=== PATIENT | male | born 1965 | race Caucasian/White ===

== ENCOUNTER 2017-09-01 08:40 | Outpatient (CLI) | payer OTHER | END 2017-09-01 08:41 | disposition home or self-care (01) | LOC: EDBD → BICMRI 08:40 | PROVIDERS: ATTEND Orthopaedic Surgery | DX: M25.511 Pain in right shoulder (principal); S43.401A Unspecified sprain of right shoulder joint, initial encounter ==

== ENCOUNTER 2017-12-30 10:54 | Outpatient (CLI) | payer OTHER ==
[2017-12-30 12:07] LABS: Mean Corpuscular HGB CONC 33.7 g/dL (32.0-36.0); Mean Corpuscular Hemoglobin 32.6 pg (27.0-31.0); Mean Corpuscular Volume 96.8 fL (78.0-98.0); Mean Platelet Volume 7.4 fL (7.4-10.4); Platelet Count 247 thou/uL (130-400); RBC Distribution Width 11.2 % (11.5-14.5); Red Blood Cell (RBC) Count 4.61 mill/uL (4.70-6.10)
[2017-12-30 12:33] LABS: Anion Gap 12 mmol/L (10-20); BUN (Urea Nitrogen) 11 mg/dL (8.4-25.7); Calc. Creatinine Clearance 0 mL/min (70-130); Calcium 9.6 mg/dL (7.8-10.44); Carbon Dioxide 27 mmol/L (23-31); Chloride 105 mmol/L (98-107); Estimated GFR-MDRD Greater than 90; Glucose 116 mg/dL (80-115); Sodium 140 mmol/L (136-145)
== END 2017-12-30 10:55 | disposition home or self-care (01) ==
LOC: EDBD → LABBT 10:54
PROVIDERS: ATTEND Orthopaedic Surgery
DX: Z01.818 Encounter for other preprocedural examination (principal); M75.41 Impingement syndrome of right shoulder; G56.01 Carpal tunnel syndrome, right upper limb; S43.431A Superior glenoid labrum lesion of right shoulder, initial encounter
CPT/HCPCS: 80048; 85027; 93005; 93010

== ENCOUNTER 2017-12-31 07:51 | Day surgery (SDC) | payer OTHER ==
[2017-12-30 11:10] VITALS: BMI 25.0
[2017-12-31] MEDS ORDERED: CEFAZOLIN/Water 2 GM/20 ML SYRINGE ONE (08:19)
[2017-12-31] MEDS ORDERED: Fentanyl 100 MCG/2 ML VIAL ONE ×2 (08:25→13:20)
[2017-12-31] MEDS ORDERED: Midazolam HCl 2 mg/2 ml Vial ONE ×2 (08:25→14:03)
[2017-12-31] MEDS ORDERED: HYDROcodone/Acetaminophen 7.5/325 mg Tablet PO PRN ×2 (09:23)
[2017-12-31] MEDS ORDERED: Fentanyl 100 MCG/2 ML VIAL IV PRN (09:24)
[2017-12-31] MEDS ORDERED: traMADol HCl 50 MG TAB PO PRN ×2 (09:24)
[2017-12-31] MEDS ORDERED: Ropivacaine HCl/PF 1,100 MG in Sodium Chloride 0.9% 440 ML NERVE BLCK SCH (09:24)
[2017-12-31] MEDS ORDERED: Zolpidem Tartrate 5 MG TAB PO PRN (09:24)
[2017-12-31] MEDS ORDERED: Promethazine HCl 25 MG/ML VIAL IM PRN (09:24)
[2017-12-31] MEDS ORDERED: Ondansetron HCl/PF 4 MG/2 ML Vial IVP PRN (09:24)
[2017-12-31] MEDS ORDERED: Bupivacaine/Epinephrine 0.25% 30 ML VIAL ONE (11:31)
[2017-12-31] MEDS ORDERED: Neomycin-Polymyxin 1 ML AMP ONE (12:31)
[2017-12-31] MEDS ORDERED: Bupivacaine HCl 0.5%/Epinephrine 1:200,000/PF 30 ml Vial ONE (13:31)
[2017-12-31] MEDS ORDERED: Esmolol 100 MG/10 ML VIAL ONE ×2 (14:03→15:14)
[2017-12-31] MEDS ORDERED: Ropivacaine 0.5% HCl/PF (150 MG/30 ML VIAL) ONE (14:51)
[2017-12-31] MEDS ORDERED: Ropivacaine 0.2% HCl/PF (40 MG/20 ML VIAL) ONE (14:51)
[2017-12-31] MEDS ORDERED: Lidocaine 1% PF 5 ML VIAL ONE (15:14)
[2017-12-31] MEDS ORDERED: Ondansetron HCl/PF 4 MG/2 ML Vial ONE (15:14)
[2017-12-31] MEDS ORDERED: Glycopyrrolate 0.2 MG/ML 5 ML SYRINGE ONE (15:14)
[2017-12-31] MEDS ORDERED: PROPOFOL 200 MG/20 ML VIAL ONE (15:14)
[2017-12-31] MEDS ORDERED: ePHEDrine/0.9% NaCl/PF SYRINGE 50 mg/10 ml ONE (15:14)
--- NOTE | 2017-12-31 16:18 | OP ---
DATE OF OPERATION: 12/31/2017 PREOPERATIVE DIAGNOSES: 1. Impingement, right shoulder and tear of the posterior superior labrum of the right shoulder. 2. Right carpal tunnel syndrome. POSTOPERATIVE DIAGNOSES: 1. Impingement, right shoulder and tear of the posterior superior labrum of the right shoulder. 2. Right carpal tunnel syndrome. PROCEDURE: 1. Arthroscopy of the right shoulder with subacromial decompression and repair of the posterior supe rior labrum. 2. Right carpal tunnel release. SURGEON: Lyle Stoll M.D. ANESTHESIA: General. TECHNIQUE: The patient had a supraclavicular block performed prior to surgery. He was given preoper ative IV antibiotics, taken to the operating room, placed in the supine position. Satisfactory gener al anesthesia was performed. The patient was then placed in the left lateral decubitus position. Al l bony prominences were well-padded and the right upper extremity was placed in 15 pounds of traction . The shoulder and upper extremity sterilely prepped and draped in usual fashion. After the shoulde r was initially scoped through anterior and posterior portals, there was significant synovitis in the shoulder joint. Partial synovectomy was performed. There was tearing from the posterior superior l abrum and this was repaired using Arthrex 2.9 anchors and #2 FiberWire. This provided excellent stab ility of the posterior superior labrum. There was some fraying in the superior portion of the labrum as well and this was smoothed down with a shaver. The anterior labrum and inferior labrum were inta ct. The undersurface of the rotator cuff was intact. There were some arthritic changes, particularl y in the glenoid with some articular cartilage damage. The subacromial space was then entered and wa s cleaned up initially with a ArthroWand and then a harley was used to smooth down and thinned down the undersurface of the acromion. The top of the rotator cuff had significant synovitis and a partial s ynovectomy was performed, but there were no full tears of the rotator cuff. After the subacromial de compression was performed, the wounds were closed using 3-0 Rapide and the patient was taken out of t raction, placed in the supine position. A temporary dressing was placed over the shoulder and the [facility] hand, forearm, and wrist were then sterilely prepped and draped. After exsanguination, the tourn iquet at the proximal right forearm was raised to 200 mmHg. A 12 mm incision was made curvilinear at the base of the hand over the carpal canal region. Blunt and sharp dissection was made down to the median nerve. Using the [employer] carpal tunnel release instruments, the interval between the median n erve and transverse carpal ligament was developed and then between the transverse carpal ligament and the palmar fascia was developed using the special [employer] tome scalpel. The transverse carpal ligam ent was divided completely freeing the median nerve, making sure that there was no compressive or res tricted tissue over the median nerve up into the distal aspect of the forearm or into the palm. The wound was then irrigated with antibiotic solution and closed using 3-0 Rapide. A 15 mL of 0.5% Caryl ine without epinephrine was used around the wound and the palm to give the patient postoperative anal gesia although the supraclavicular block probably already would do that. This was placed just to be sure that he did not have good analgesia for the carpal tunnel release. The wounds were then cleaned up and sterile dressings were applied. The patient was awakened, extubated, and transferred to the recovery room in stable condition. ESTIMATED BLOOD LOSS: 20 mL. COMPLICATIONS: None. DISCHARGE MEDICATIONS: [place] 10 one every 6 hours as needed for pain, #60. FOLLOWUP: Follow up in my office in 1 week.
== END 2017-12-31 16:25 | disposition home or self-care (01) ==
LOC: SDC 07:51 → EDBD 11:30 → SDC 16:25
PROVIDERS: ATTEND Orthopaedic Surgery
PROC: 0MM14ZZ Reattachment of Right Shoulder Bursa and Ligament, Percutaneous Endoscopic Approach (ICD-10-PCS; principal; 2017-12-31)
PROC: 01N50ZZ Release Median Nerve, Open Approach (ICD-10-PCS; principal; 2017-12-31)
PROC: 0RNJ4ZZ Release Right Shoulder Joint, Percutaneous Endoscopic Approach (ICD-10-PCS; principal; 2017-12-31)
DX: S43.431A Superior glenoid labrum lesion of right shoulder, initial encounter (principal); G56.01 Carpal tunnel syndrome, right upper limb; M75.41 Impingement syndrome of right shoulder; M19.011 Primary osteoarthritis, right shoulder; M65.811 Other synovitis and tenosynovitis, right shoulder
CPT/HCPCS: C1713; J0670; J2001; J2250; J2405; J2704; J2795; J3010; J7050

== ENCOUNTER 2019-11-02 07:59 | Outpatient (CLI) | payer MEDICARE ==
--- NOTE | 2019-11-02 08:52 | ULT ---
ULTRASOUND ABDOMEN LIMITED: (RIGHT UPPER QUADRANT) DATE: 11/02/2019 HISTORY: 64-year-old male with elevated liver enzymes. FINDINGS: Gallbladder:Not visualized. Patient not NPO. Common duct: 5 mm. Liver:Normal size and echogenicity. Pancreas:Nonspecific sonographic appearance Right kidney:No hydronephrosis IMPRESSION: 1. Gallbladder not visualized. This could be due to contraction due to postprandial state, or status post cholecystectomy. 2. Otherwise negative.
== END 2019-11-02 08:00 | disposition home or self-care (01) ==
LOC: BICULT 07:59
PROVIDERS: ATTEND Family Medicine
DX: R74.8 Abnormal levels of other serum enzymes (principal)
CPT/HCPCS: 76705

== ENCOUNTER 2021-09-09 11:29 | Outpatient (CLI) | payer MEDICARE | END 2021-09-09 11:30 | disposition home or self-care (01) | LOC: SCSMRI 11:29 | PROVIDERS: ATTEND Neurological Surgery | DX: M54.6 Pain in thoracic spine (principal); M54.2 Cervicalgia; M47.814 Spondylosis without myelopathy or radiculopathy, thoracic region; M50.323 Other cervical disc degeneration at C6-C7 level; M47.812 Spondylosis without myelopathy or radiculopathy, cervical region; M48.02 Spinal stenosis, cervical region; M48.03 Spinal stenosis, cervicothoracic region; M47.813 Spondylosis without myelopathy or radiculopathy, cervicothoracic region; M50.21 Other cervical disc displacement, high cervical region; M50.23 Other cervical disc displacement, cervicothoracic region | CPT/HCPCS: 72141; 72146 ==

== ENCOUNTER 2024-04-17 18:45 | Emergency (ER) | payer MEDICARE | END 2024-04-17 19:45 | disposition home or self-care (01) | LOC: ERS 18:45 | DX: T81.49XA Infection following a procedure, other surgical site, initial encounter (principal); L02.91 Cutaneous abscess, unspecified; I10 Essential (primary) hypertension | CPT/HCPCS: 99282 ==